=== PATIENT | male | born 1995 ===

== ENCOUNTER 2017-08-21 19:59 | Emergency (ER) | payer OTHER ==
--- NOTE | 2017-08-21 20:56 | UC ---
General HPI - HPI Summary HPI Summary: Pt is a 22 yo male presents to with SO. 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 Pt states has had mild head congestion and fatigue last 1-2 days. Decreased po/ fluids Pt states feeling better today. 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 Pt states started to feel warm, lightheaded and nausea. Pt states sat down and sx improved. Pt states went to epic trainer room and drank fluids. States feeling better. Pt without complaints at presentation but wanted to get checked. No cp, sob. No vision changes, lemons. no fever, chills, rash. No abdominal pain n/v/d. pt reports multilple flu exposures Pt recently (2-3 weekago) tx for pna dx on cxr - no repeat imaging. coughing resolved Pt's medications reviewed this visit - History of Current Complaint Chief Complaint: UCGI Stated Complaint: LIGHT HEADED Time Seen by Provider: 08/21/17 20:35 Hx Obtained From: Patient Onset/Duration: Sudden Onset, Gradual Onset Timing: Intermittent Episodes Lasting: - 20min Onset Severity: Moderate Current Severity: None Pain Intensity: 0 - Allergy/Home Medications Allergies/Adverse Reactions: Allergies Allergy/AdvReac Type Severity Reaction Status Date / Time No Known Allergies Allergy Verified 08/21/17 20:27 Home Medications: Home Medications NK [No Home Medications Reported] 08/21/17 [History Confirmed 08/21/17] PMH/Surg Hx/FS Hx/Imm Hx Previously Healthy: Yes - Surgical History Surgical History: Yes Surgery Procedure, Year, and Place: back surgery, cosmetic surgery - Social History Occupation: Student Lives: Dormitory/Roommates Alcohol Use: None Substance Use Type: None Smoking Status (MU): Never Smoked Tobacco Review of Systems Constitutional: Fatigue ENT: Sinus Congestion Gastrointestinal: Nausea Neurological: Other - lightheadedness All Other Systems Reviewed And Are Negative: Yes Physical Exam Triage Information Reviewed: Yes Appearance: Well-Appearing, No Pain Distress, Well-Nourished Vital Signs: Initial Vital Signs Temp 98.2 F 08/21/17 20:24 Pulse 61 08/21/17 20:24 Resp 20 08/21/17 20:24 BP 121/74 08/21/17 20:24 Pulse Ox 100 08/21/17 20:24 Vital Signs Reviewed: Yes Eye Exam: Normal Eyes: Positive: Conjunctiva Clear ENT: Positive: Hearing grossly normal, Pharynx normal, TMs normal, Other - nasal congestion. Negative: Sinus tenderness Dental Exam: Normal Neck exam: Normal Neck: Positive: 1 Respiratory Exam: Normal Respiratory: Positive: Chest non-tender, Lungs clear, Normal breath sounds, No respiratory distress, No accessory muscle use Cardiovascular Exam: Normal Cardiovascular: Positive: RRR, No Murmur Abdominal Exam: Normal Abdomen Description: Positive: Nontender, No Organomegaly, Soft Musculoskeletal Exam: Normal Neurological Exam: Normal Neurological: Positive: Alert Psychological Exam: Normal Psychological: Positive: Normal Response To Family Skin Exam: Normal Diagnostics - Radiology No standard instances Radiology Interpretation Completed By: Radiologist - NAD - EKG Cardiac Rate: NL Cardiac Rhythm: Sinus: Normal Ectopy: None Re-Evaluation - Re-Evaluation First Eval Comment: reviewed eval with pt. continues to feel well without complaints. will d/c. pt to f/u with [facility] prior to resuming sports next week. pt comfortable and in agreement with plan Course/Dx - Course Course Of Treatment: Pt with episode of lightheadeness, nausea at weight room. pt improved now. pt with recent uri sx. pt well appearing, no distress and non concerning exam. will check ekg, flu. cxr for infiltrate resolution. reassess - Differential Dx - Multi-Symptom Provider Diagnoses: epidose of lightheaded and nausea Discharge - Discharge Plan Condition: Stable Disposition: HOME Patient Education Materials: Lightheadedness (ED) Forms: *Gen. Provider Communication Referrals: [facility] [Outside] No Primary Care Phys,NOPCP [Primary Care Provider] - Additional Instructions: Stay well hydrated. Drink plenty of non-alcoholic, non-caffinated beverages eat regular, healthy meals get plenty of restful sleep contact [facility] tomorrow to schedule a follow-up recheck appointment before returning to sports. If you develop recurrent lightheadedness, vomiting, chest pain or shortness of breath it is recommended you go to [facility] or the emergency department for further evaluation
--- NOTE | 2017-08-21 21:33 | RAD ---
Indication: Lightheadedness, syncope. 2 views of the chest including dual energy PA views demonstrate no mediastinal shift. Heart is of normal size and configuration. Lung wyatt appear clear. IMPRESSION: No active cardiopulmonary disease is noted.
== END 2017-08-21 22:00 | disposition home or self-care (01) ==
LOC: UCEAST 19:59
DX: R42 Dizziness and giddiness (principal); R11.0 Nausea; R09.81 Nasal congestion; R53.83 Other fatigue; R00.1 Bradycardia, unspecified
CPT/HCPCS: 71046; 81003; 87502; 93005; 99201; G0463